=== PATIENT | male | born 1970 | race Caucasian/White ===

== ENCOUNTER 2019-05-13 11:08 | Emergency (ER) | payer OTHER ==
[2016-01-15 12:30] VITALS: BP 120/80
[2019-05-13] MEDS ORDERED: ORPHENADRINE CITRATE 60 MG/2 ML ML ONE (12:02)
[2019-05-13] MEDS ORDERED: KETOROLAC TROMETHAMINE 60 MG/2 ML VIAL IM ONE (12:02)
--- NOTE | 2019-05-30 13:24 | Diagnostic Imaging Report ---
MARIBELL IRENE [facility] [address] [facility].[address] [id number] Report Submission Date: May 13, 2019 12:00:22 PM CDT Patient Study Name: RASHMI GREWAL Date: May 13, 2019 11:26:51 AM CDT Modality Type: DX Gender: M Description: RIBS UNILAT 2 VIEWS : 74 Institution: [facility] Physician: MARIBELL IRENE HISTORY: 49-year-old male with left chest wall pain, no known injury. COMPARISON: None available. TECHNIQUE: Three views of the left ribs were performed. IMPRESSION: No evidence of fracture of the left ribs or clavicle. Electronically signed on May 13, 2019 12:00:22 PM CDT by: Guero DHILLON
== END 2019-05-13 12:12 ==
LOC: ED 11:08
DX: R07.81 Pleurodynia (principal)
CPT/HCPCS: 71100; 99282; 99283; J1885; J2360